=== PATIENT | female | born 1935 | race Caucasian/White ===

== ENCOUNTER → 2017-04-08 | Outpatient (CLI) | payer OTHER ==
[~2017-04-08] MED LIST: ACET-1600 PO; ALLO100T30 PO; ANTIBIOTIC PO; ASPI-496 PO; ASPI325T17 PO; ASPIRIN BABY PO; BISA10SU54 PR; CITA20TA9 PO; DIPH25CA61 PO; DOCU100C33 PO; FERR325T18 PO; GEMF600T3 PO; INSU100V5 SQ-INSULIN; LEVO100T5 PO; LOSA25TA5 PO; MAG355OR14 PO; MAG355OR15 PO; MAGN400O7 PO; METF10002 PO; OMEP-110 PO; ONDA4TAB10 PO; SENN8.6T98 PO; SODIUM BICARBONATE PO; SULF1TAB24 PO; TRAM50TA2 PO; VITAMIN PO; ZOLP5TAB6 PO
== END | disposition home or self-care (01) ==
LOC: CFH 11:40
PROVIDERS: ATTEND Nurse Practitioner Family
DX: N64.4 Mastodynia (principal)
CPT/HCPCS: 76642; G0204

== ENCOUNTER 2019-09-22 08:07 | Emergency (ER) | payer MEDICARE ==
[~2019-09-22] VITALS: Ht 170.2 cm; Wt 82.0 kg
[~2019-09-22 08:07] MED LIST changes: -GEMF600T3 PO; +GEMF600T8 PO; +LOSA25TA25 PO; -LOSA25TA5 PO; +PIOG45TA63 PO
--- NOTE | 2019-09-22 08:20 | NUR ---
PT BIB [facility] WITH C/O LLE PAIN, PAIN THEN TRAVELED TO HER CHEST THEN SHE GOT A CASTANO. PT CURRENTLY DENIES CP/SOB. PT WITH NO CARDIAC HX PER HER REPORT. PT MEDICATED WITH TYLENOL SOFTWARE VALIDATION TECHNICIAN VIA EMS. PT NOW STATES PAIN 5/10 IN HEAD. PT NOTED TO HAVE BLE SWELLING 2+ PITTING, SAME BILATERALLY. PT TO BP, CONT PULSE OX AT THIS TIME. ERMD IN TO EVAL PT, ORDERS RECIEVIED
[2019-09-22 10:09] VITALS: BP 135/67
== END 2019-09-22 11:08 | disposition home or self-care (01) ==
LOC: ED 09:22
DX: M79.18 Myalgia, other site (principal); M79.662 Pain in left lower leg; R51 Headache; I21.9 Acute myocardial infarction, unspecified; I10 Essential (primary) hypertension; E03.9 Hypothyroidism, unspecified; E11.65 Type 2 diabetes mellitus with hyperglycemia; Z86.39 Personal history of other endocrine, nutritional and metabolic disease
CPT/HCPCS: 93005; 99284